=== PATIENT | female | born 1945 ===

== ENCOUNTER 2018-09-28 08:41 | Outpatient (CLI) | payer MEDICARE | END 2018-09-28 08:42 | disposition home or self-care (01) | LOC: C.PAT 08:41 | DX: L72.3 Sebaceous cyst (principal) ==

== ENCOUNTER 2018-10-03 09:06 | Day surgery (SDC) | payer MEDICARE ==
[2018-09-28 09:31] VITALS: BMI 24.7
[2018-10-03] MEDS ORDERED: ceFAZolin 1 gm in NS 1 GM/100 ML BAG IVPB ONE (09:31)
[2018-10-03] MEDS ORDERED: Bupivacaine 0.25% 20 ML INJ IJ ONE (09:31)
[2018-10-03] MEDS ORDERED: Lidocaine/Epinephrine 1% 1:100000 10 ML IJ ONE (09:31)
[2018-10-03 09:56] LABS: INR 1.5
[2018-10-03] MEDS ORDERED: Midazolam 2 MG/2 ML VIAL ONE (11:00)
[2018-10-03] MEDS ORDERED: Propofol 10 mg/ml Inj (20 ML) ONE (11:02)
[2018-10-03] MEDS ORDERED: HYDROmorphone 0.5 mg/0.5 ml ISec IVP PRN (12:32)
--- NOTE | 2018-10-03 12:34 | PCM.SURG1 ---
Surgeon's Initial Post Op Note - Surgeon's Notes Surgeon: Dr. Strong Program Control Analyst: Dr. Diamond Daniel, PGY2; Santana Julian, MS -III Type of Anesthesia: IV Sedation, Local Anesthesia Administered By: Dr. Green Pre-Operative Diagnosis: Sebaceous cyst on the upper back and skin lesion left upper abdomen Operative Findings: Sebaceous cyst approximately 3cm in diameter on the upper back and skin lesion approximately 1 cm in diameter on left upper abdomen. Adequate hemostasis obtained at the end of the case with electrocautery. Post-Operative Diagnosis: Sebaceous cyst on the upper back and skin lesion left upper abdomen. Operation Performed: Excision of sebaceous cyst of the back and excision of the skin lesion on the abdomen. Complex closure. Specimen/Specimens Removed: Sebacious cyst of the back, skin lesion of the abdomen Estimated Blood Loss: EBL {In ML}: 10 Blood Products Given: N/A Drains Used: No Drains Post-Op Condition: Fair Date of Surgery/Procedure: 10/03/18 Time of Surgery/Procedure: 11:30
[2018-10-03] MEDS ORDERED: Oxycodone/Acetaminophen 5/325 mg Tab PO PRN (12:36)
[2018-10-03 13:35] VITALS: TEMP 97.6; O2SAT 100
[2018-10-03 13:56] VITALS: BP 140/64; PULSE 61; RESP 15
--- NOTE | 2018-10-04 08:48 | OP ---
PROCEDURE DATE: 10/03/2018 PREOPERATIVE DIAGNOSES: 1. Infected sebaceous cyst of the mid upper back. 2. Upper abdominal skin lesion. POSTOPERATIVE DIAGNOSES: 1. Infected sebaceous cyst of the mid upper back. 2. Upper abdominal skin lesion. PROCEDURES DONE: 1. Excision of sebaceous cyst of the mid upper back, 4 x 4 x 5 cm size. 2. Excision of the redundant skin and subcutaneous tissue of mid upper back. 3. Layered closure of the wound, complex, 5 x 4 x 4 cm size. 4. Excision of the upper abdominal skin lesion, 2 x 1 cm size. 5. Layered closure of the wound of upper abdomen, 3 x 2 cm size. ANESTHESIA: Local anesthesia plus sedation. ESTIMATED BLOOD LOSS: Around 10 mL for both procedures. DRAIN: None. PATHOLOGY: 1. Infected sebaceous cyst with redundant skin and subcutaneous tissue was sent for the pathology. 2. Upper abdominal skin lesion with a normal remarked skin. COMPLICATIONS: None. INTRAOPERATIVE FINDINGS: The patient had approximately mid upper back sebaceous cyst with mild cellulitis. There was no open wound. The patient also had 2 x 1 cm skin lesion of the upper abdomen. DESCRIPTION OF PROCEDURE: On intraoperative step, this is a 73-year-old female who was diagnosed with infected mid upper back sebaceous cyst with upper abdominal skin lesion. The patient was consented for the excision of the sebaceous as well as abdominal skin lesions. Brought to the OR, placed supine on the operating table. After induction of the anesthesia, the patient was placed in right lateral position. The neck area was prepped and draped in the usual sterile fashion, and local anesthesia was injected. Abdominal area was also prepped and draped in the usual sterile fashion, and local anesthesia was injected. An elliptical incision was made first surrounding the upper abdominal skin lesion, and upper and lower flaps were created. The skin lesion was deep up to the subcutaneous tissue, and it was completed excised with a rim of normal skin. Now, the wound was irrigated and wound was closed in multiple layers, the deep subcu with a 2-0 Vicryl, superficial subcu with a 2-0 Vicryl, skin with a 4-0 Monocryl. A dry sterile dressing was applied. Then, the elliptical incision was made surrounding the upper mid back incision, and upper and lower flaps were created. The patient had infected skin surrounding the sebaceous cyst. The dissection was carried deep down up to the underlying fascia as well as the muscles, and the dissection was done medially laterally. The sebaceous cyst was completely excised, and it was sent off the table for the pathology. Now, the proper hemostasis was achieved. The patient also had extra layer of the redundant skin and subcutaneous tissue superiorly that was also excised, and it was sent off the table for the pathology. The wound was irrigated. The wound was closed in multiple layers. The lower Hong Strong MD
== END 2018-10-03 14:05 | disposition home or self-care (01) ==
LOC: C.SDS 09:06
PROVIDERS: ATTEND Surgery Surgical Critical Care
DX: L72.3 Sebaceous cyst (principal); L72.0 Epidermal cyst; L08.9 Local infection of the skin and subcutaneous tissue, unspecified; D36.10 Benign neoplasm of peripheral nerves and autonomic nervous system, unspecified
CPT/HCPCS: 11401; 11403; 13100; 36415; 85610; 88305; J0690; J2250; J2704; J3010